=== PATIENT | female | born 1995 | race Caucasian/White ===

== ENCOUNTER 2022-12-02 01:13 | Observation (INO) | payer MEDICAID ==
[~2022-12-02] VITALS: Ht 160 cm; Wt 77.1 kg
[2022-12-02] MEDS ORDERED: ONDANSETRON HCL 4MG/2ML INJ IV PRN (02:00)
[2022-12-02] MEDS ORDERED: CEFAZOLIN 1000MG PREMIX 50 ML IV NR (02:00)
[2022-12-02] MEDS ORDERED: ACETAMINOPHEN 325MG TABLET PO PRN (02:00)
[2022-12-02] MEDS ORDERED: ACETAMINOPHEN 500MG TABLET PO PRN (02:00)
[2022-12-02] MEDS ORDERED: LACTATED RINGERS 1,000 ML IV SCH (02:00)
[2022-12-02] MEDS ORDERED: CITRIC ACID/SODIUM CITRATE SOLN 30ML UDC PO PRN (02:00)
== END 2022-12-02 04:26 | disposition left against medical advice (07) ==
LOC: 8 EST A/PP 01:13
PROVIDERS: ADMIT Obstetrics & Gynecology; ATTEND Obstetrics & Gynecology
DX: O26.893 Other specified pregnancy related conditions, third trimester (principal); R10.10 Upper abdominal pain, unspecified; Z3A.33 33 weeks gestation of pregnancy
CPT/HCPCS: 59025; 96360; 96361; 76705; 76818; 76805; J0690; G0378 ×2; 99281

== ENCOUNTER 2023-06-22 07:18 | Emergency (ER) | payer MEDICAID ==
[~2023-06-22] VITALS: Ht 157.5 cm; Wt 55.0 kg
[2023-06-22] MEDS ORDERED: LORAZEPAM 2MG/ML INJ IM ONE (07:45)
[2023-06-22] MEDS ORDERED: OLANZAPINE 10 MG/VIAL IM ONE (07:45)
[2023-06-22 09:14] LABS: BASOPHILS % 0.4 % (0.0-2.0); EOSINOPHILS % 0.1 % (0.0-5.0); HEMATOCRIT. 36.5 % (36.0-48.0); HEMOGLOBIN. 12.3 g/dL (12.0-16.0); LYMPHOCYTES % 14.4 % (20.0-50.0); MEAN CORPUSCULAR HEMOGLOBIN 29.5 pg (28.0-32.0); MEAN CORPUSCULAR HGB CONC 33.7 g/dL (31.0-37.0); MEAN CORPUSCULAR VOLUME 87.6 fL (81.0-99.0); MEAN PLATELET VOLUME 7.3 fl (7.4-10.4); MONOCYTES % 8.3 % (2.0-8.0); NEUTROPHILS % 76.8 % (40.0-76.0); PLATELET 280 x1000/uL (130-400); RED BLOOD CELL COUNT 4.17 mill/uL (4.2-5.4); RED CELL DISTRIBUTION WIDTH 12.9 % (11.6-14.6); WHITE BLOOD COUNT 16.2 x1000/uL (4.5-11.0)
[2023-06-22 09:31] LABS: ALANINE AMINOTRANSFERASE 11 IU/L (10-49); ALBUMIN 4.3 g/dL (3.2-4.8); ASPARTATE AMINOTRANSFERASE 32 IU/L (<34); BILIRUBIN TOTAL 1.2 mg/dL (0.1-1.0); CALCIUM 9.1 mg/dL (8.7-10.4); CARBON DIOXIDE 14 mEq/L (21-32); CHLORIDE 105 mEq/L (98-107); CREATININE 0.9 mg/dL (0.6-1.0); ETHANOL BLOOD < 10 mg/dL (<10); GLUCOSE 61 mg/dL (70-105); POTASSIUM 3.3 mEq/L (3.5-5.1); PROTEIN TOTAL 7.3 g/dL (6.0-8.3); SODIUM 137 mEq/L (136-145); UREA NITROGEN BLOOD 19 mg/dL (9-23)
[2023-06-22 10:00] VITALS: O2SAT 96
[2023-06-22 17:00] VITALS: BP 129/81; PULSE 101; RESP 20; TEMP 98.1
== END 2023-06-22 23:23 | disposition home or self-care (01) ==
LOC: ER 07:41
DX: F15.129 Other stimulant abuse with intoxication, unspecified (principal); J45.909 Unspecified asthma, uncomplicated; Z88.5 Allergy status to narcotic agent
CPT/HCPCS: 80053; 80320; 85025; 36415; 96372; 99285; J3490; J2060; Z7610 ×2; G0480

== ENCOUNTER 2024-03-10 18:16 | Emergency (ER) | payer MEDICAID ==
[~2024-03-10] VITALS: Ht 160 cm; Wt 54.0 kg
[2024-03-10 18:22] VITALS: TEMP 98.5; O2SAT 100
[2024-03-10 19:14] LABS: CLARITY URINE CLEAR (CLEAR); COLOR URINE YELLOW (YELLOW); GLUCOSE URINE NEGATIVE (NEGATIVE); KETONES URINE NEGATIVE (NEGATIVE); LEUKOCYTE ESTERASE URINE 1+ (NEGATIVE); NITRITE URINE NEGATIVE (NEGATIVE); OCCULT BLOOD URINE NEGATIVE (NEGATIVE); PROTEIN URINE NEGATIVE (NEGATIVE); SPECIFIC GRAVITY URINE 1.016 (1.005-1.030)
[2024-03-10] MEDS: IBUPROFEN 600MG TABLET PO ONE (19:15)
[2024-03-10 19:36] LABS: BACTERIA URINE TRACE; RBC URINE NONE SEEN /hpf (0-2); SQUAMOUS EPITHELIAL CELL URINE FEW /lpf (RARE/1+)
[2024-03-10 20:35] LABS: BASOPHILS % 0.6 % (0.0-2.0); EOSINOPHILS % 2.5 % (0.0-5.0); HEMOGLOBIN. 12.6 g/dL (12.0-16.0); LYMPHOCYTES % 30.2 % (20.0-50.0); MEAN CORPUSCULAR HEMOGLOBIN 28.6 pg (28.0-32.0); MEAN CORPUSCULAR HGB CONC 33.2 g/dL (31.0-37.0); MEAN CORPUSCULAR VOLUME 86.4 fL (81.0-99.0); MEAN PLATELET VOLUME 7.4 fl (7.4-10.4); MONOCYTES % 5.9 % (2.0-8.0); NEUTROPHILS % 60.8 % (40.0-76.0); PLATELET 300 x1000/uL (130-400); RED CELL DISTRIBUTION WIDTH 15.6 % (11.6-14.6); WHITE BLOOD COUNT 7.4 x1000/uL (4.5-11.0)
[2024-03-10 20:41] LABS: CHLORIDE 107 mEq/L (98-107); POTASSIUM 3.9 mEq/L (3.5-5.1); SODIUM 138 mEq/L (136-145)
[2024-03-10 20:42] LABS: CALCIUM 9.4 mg/dL (8.7-10.4); CARBON DIOXIDE 27 mEq/L (21-32)
[2024-03-10 20:47] LABS: CREATININE 0.7 mg/dL (0.6-1.0); GLUCOSE 91 mg/dL (70-105); UREA NITROGEN BLOOD 8 mg/dL (9-23)
[2024-03-10 20:55] LABS: B-HCG QUANTITATIVE 1 mIU/mL (<3)
[2024-03-10] MEDS ORDERED: NITR-87 MT (22:16)
[2024-03-10 22:33] VITALS: BP 124/58; PULSE 62; RESP 18; O2SAT 100
== END 2024-03-10 22:34 | disposition home or self-care (01) ==
LOC: ER 18:16
DX: N94.6 Dysmenorrhea, unspecified (principal); N39.0 Urinary tract infection, site not specified; N93.9 Abnormal uterine and vaginal bleeding, unspecified; F15.10 Other stimulant abuse, uncomplicated; J45.909 Unspecified asthma, uncomplicated; R10.2 Pelvic and perineal pain; Z88.5 Allergy status to narcotic agent
CPT/HCPCS: 36415; 76830; 76856; 80048; 81003; 81025; 84702; 85025; 86850; 86900; 99284